=== PATIENT | female | born 1980 | race African-American/Black ===

== ENCOUNTER 2021-10-29 17:05 | Inpatient (IN) | payer SELFPAY ==
[~2021-10-29] VITALS: Ht 165.1 cm; Wt 112.9 kg
[2021-10-29] MEDS ORDERED: LEVETIRACETAM 500MG PREMIX 100 ML IV ONE ×2 (17:45)
[2021-10-29 18:54] LABS: BASOPHILS % 0.6 % (0.0-2.0); EOSINOPHILS % 0.9 % (0.0-5.0); HEMATOCRIT. 32.1 % (36.0-48.0); HEMOGLOBIN. 10.4 g/dL (12.0-16.0); LYMPHOCYTES % 15.1 % (20.0-50.0); MEAN CORPUSCULAR HEMOGLOBIN 23.3 pg (28.0-32.0); MEAN PLATELET VOLUME 7.9 fl (7.4-10.4); MONOCYTES % 8.9 % (2.0-8.0); NEUTROPHILS % 74.5 % (40.0-76.0); PLATELET 309 x1000/uL (130-400); RED BLOOD CELL COUNT 4.46 mill/uL (4.2-5.4); RED CELL DISTRIBUTION WIDTH 19.1 % (11.6-14.6)
[2021-10-29 19:00] LABS: CHLORIDE 103 mEq/L (98-107)
[2021-10-29 19:04] LABS: ETHANOL BLOOD < 10 mg/dL
[2021-10-29 19:07] LABS: HCG SCREEN NEGATIVE
[2021-10-29 19:10] LABS: B-HCG QUANTITATIVE < 1 mIU/mL (<3)
[2021-10-29] MEDS ORDERED: IOHEXOL-350 100 ML BOTTLE ONE (19:48)
[2021-10-29 19:57] LABS: CLARITY URINE CLEAR (CLEAR); COLOR URINE YELLOW (YELLOW); KETONES URINE NEGATIVE (NEGATIVE); LEUKOCYTE ESTERASE URINE NEGATIVE (NEGATIVE); NITRITE URINE NEGATIVE (NEGATIVE); OCCULT BLOOD URINE NEGATIVE (NEGATIVE); PROTEIN URINE NEGATIVE (NEGATIVE); UROBILINOGEN URINE 0.2 E.U./dL (0.2-1.0)
[2021-10-29 20:15] LABS: *AMPHETAMINES SCREEN URINE NEGATIVE (NEGATIVE); *BARBITURATES SCREEN URINE NEGATIVE (NEGATIVE); *BENZODIAZEPINES SCREEN URINE NEGATIVE (NEGATIVE); *COCAINE SCREEN URINE NEGATIVE (NEGATIVE)
[2021-10-29] MEDS ORDERED: SODIUM CHLORIDE 0.9% 1,000 ML IV ONE (20:15)
[2021-10-29 20:16] LABS: CANNABINOID URINE SCREEN NEGATIVE (NEGATIVE); METHADONE URINE SCREEN NEGATIVE (NEGATIVE); OPIATES URINE SCREEN NEGATIVE (NEGATIVE); PHENCYCLIDINE URINE SCREEN NEGATIVE (NEGATIVE)
[2021-10-30] MEDS ORDERED: ASPIRIN 325MG EC TABLET PO ONE (00:30)
[2021-10-30] MEDS ORDERED: MAGNESIUM/ALUMINUM HYDROXIDE/SIMETHICONE 30ML UDC PO PRN (07:00)
[2021-10-30] MEDS ORDERED: ONDANSETRON HCL 4MG/2ML INJ IV PRN (07:00)
[2021-10-30] MEDS ORDERED: ACETAMINOPHEN 325MG TABLET PO PRN (07:00)
[2021-10-30] MEDS ORDERED: DOCUSATE SODIUM 100MG CAPSULE PO PRN (07:00)
[2021-10-30] MEDS ORDERED: CLONIDINE 0.1MG TABLET PO PRN (07:00)
[2021-10-30] MEDS ORDERED: HYDROCODONE/ACETAMINOPHEN 5/325MG TABLET PO PRN (07:00)
[2021-10-30] MEDS ORDERED: ENOXAPARIN 40MG/0.4ML SYR SUBCUT SCH (07:00)
[2021-10-30 08:00] VITALS: BP 141/87
[2021-10-30 08:30] VITALS: BP 141/87
[2021-10-30] MEDS ORDERED: NALOXONE HCL 0.4MG/ML VIAL IV PRN (08:30)
[2021-10-30] MEDS ORDERED: ENOXAPARIN 30MG/0.3ML SYR SUBCUT SCH (09:00)
[2021-10-30] MEDS ORDERED: ASPIRIN 81MG EC TABLET PO SCH (09:00)
[2021-10-30] MEDS ORDERED: LEVETIRACETAM 500MG/5ML CUP PO SCH (10:00)
[2021-10-30 12:00] VITALS: BP 149/92
[2021-10-30] MEDS ORDERED: ASPI-1497 MT (13:50)
[2021-10-30] MEDS ORDERED: CETI10CA2 PO (13:51)
[2021-10-30 16:00] VITALS: BP 119/78
[2021-10-30 19:33] VITALS: BP 121/84
[2021-10-30] MEDS ORDERED: ATORVASTATIN CALCIUM 40MG TABLET PO SCH (21:00)
[2021-10-31] MEDS ORDERED: PNEUMOCOCCAL 23-VAL P-SAC VAC 0.5 ML IM ONE (09:00)
== END 2021-10-30 21:10 | disposition home or self-care (01) | DRG 53 ==
LOC: ER 17:05 → MICUSO 10-30 00:25 → EDBEDREQ 10-30 00:32 → EDBEDREQTM 10-30 00:32 → EDBEDREQDT 10-30 00:32 → 6WST 10-30 04:52
PROVIDERS: ADMIT Hospitalist; ATTEND Hospitalist
DX: R56.9 Unspecified convulsions (principal); E66.01 Morbid (severe) obesity due to excess calories; I10 Essential (primary) hypertension; Z20.822 Contact with and (suspected) exposure to COVID-19; Z86.73 Personal history of transient ischemic attack (TIA), and cerebral infarction without residual deficits; Z68.41 Body mass index [BMI] 40.0-44.9, adult; Z23 Encounter for immunization
CPT/HCPCS: 36415; 70496; 70498; 70544; 70553; 71045; 80053; 80305; 80320; 81003; 83605; 84484; 84702; 84703; 85025; 87426; 93005; 99285; J1650; J1953; J7030; Q9967; G0480